=== PATIENT | female | born 1935 | race Caucasian/White ===

== ENCOUNTER 2016-08-28 13:28 | Observation (INO) | payer MEDICARE, OTHER ==
[~2016-08-28] VITALS: Ht 160 cm; Wt 68.0 kg
[~2016-08-28 13:28] MED LIST: PLAVIX 75 MG TA75 MG PO
[2016-08-28 14:43] LABS: HEMOGLOBIN 13.2 gm/dl (12.3-15.3); RED BLOOD COUNT 4.63 M/UL (4.00-5.10); WHITE BLOOD COUNT 9.1 K/UL (4.5-11.0)
[2016-08-28] MEDS ORDERED: LEVOTHYROXINE112 MCG PO (21:12)
[2016-08-28] MEDS ORDERED: LASIX20 MG PO (21:12)
[2016-08-28] MEDS ORDERED: TRADJENTA5 MG PO (21:12)
[2016-08-28] MEDS ORDERED: ASPIRIN CHEWABL81 MG PO (21:14)
[2016-08-28] MEDS ORDERED: SENNALAX-S TAB1 EACH PO (21:14)
[2016-08-28] MEDS ORDERED: PROTONIX 40 MG40 M1 PO (21:14)
[2016-08-28] MEDS ORDERED: LIPITOR20 MG PO (21:15)
[2016-08-28] MEDS ORDERED: DIABETA 5 MG TAB5 MG PO (21:15)
[2016-08-28] MEDS ORDERED: OMNICEF 300 MG300 MG PO (21:16)
[2016-08-28] MEDS ORDERED: VITAMIN B-1000 MCG/M INJ (21:16)
[2016-08-28] MEDS ORDERED: COREG 3.125M3.125 MG PO (21:17)
[2016-08-28] MEDS ORDERED: ALDACTONE25 MG PO (21:18)
[2016-08-28] MEDS ORDERED: MAPAP500 MG PO (21:18)
[2016-08-28] MEDS ORDERED: PLAVIX 75 MG TA75 MG PO (21:18)
[2016-08-28] MEDS ORDERED: CATAPRES0.2 MG PO (21:19)
[2016-08-28] MEDS ORDERED: HYDRALAZINE HCL25 MG PO (21:19)
[2016-08-29 06:33] LABS: HEMOGLOBIN 11.4 gm/dl (12.3-15.3); RED BLOOD COUNT 4.06 M/UL (4.00-5.10); WHITE BLOOD COUNT 7.9 K/UL (4.5-11.0)
[2016-08-29] MEDS ORDERED: CATAPRES 0.1MG0.1 MG PO (10:59)
== END 2016-08-29 14:06 | disposition home or self-care (01) ==
LOC: ER1 13:28 → ZEROF 16:20 → MED SURG 4 20:07
PROVIDERS: Emergency Medicine; ADMIT Emergency Medicine
DX: R55 Syncope and collapse (principal); R11.2 Nausea with vomiting, unspecified; E11.9 Type 2 diabetes mellitus without complications; E03.9 Hypothyroidism, unspecified; I25.10 Atherosclerotic heart disease of native coronary artery without angina pectoris; I10 Essential (primary) hypertension; I73.9 Peripheral vascular disease, unspecified; E78.5 Hyperlipidemia, unspecified; D64.9 Anemia, unspecified; E21.3 Hyperparathyroidism, unspecified; Z95.1 Presence of aortocoronary bypass graft; Z79.02 Long term (current) use of antithrombotics/antiplatelets; Z79.82 Long term (current) use of aspirin; Z79.899 Other long term (current) drug therapy; Z85.528 Personal history of other malignant neoplasm of kidney; Z90.5 Acquired absence of kidney; Z86.718 Personal history of other venous thrombosis and embolism; Z90.49 Acquired absence of other specified parts of digestive tract; Z90.710 Acquired absence of both cervix and uterus; Z98.51 Tubal ligation status; Z88.1 Allergy status to other antibiotic agents; Z88.2 Allergy status to sulfonamides; Z88.6 Allergy status to analgesic agent; Z87.891 Personal history of nicotine dependence
CPT/HCPCS: 36415; 70450; 71010; 80048; 80053; 81001; 82962; 83690; 83735; 84443; 84484; 85025; 93005; 93270; 96374; 99285; G0378; J2405

== ENCOUNTER 2016-08-30 13:37 | Emergency (ER) | payer MEDICARE, OTHER ==
[~2016-08-30 13:37] MED LIST changes: +ALDACTONE25 MG PO; +ASPIRIN CHEWABL81 MG PO; +CATAPRES 0.1MG0.1 MG PO; +CATAPRES0.2 MG PO; +COREG 3.125M3.125 MG PO; +DIABETA 5 MG TAB5 MG PO; +HYDRALAZINE HCL25 MG PO; +LASIX20 MG PO; +LEVOTHYROXINE112 MCG PO; +LIPITOR20 MG PO; +MAPAP500 MG PO; +OMNICEF 300 MG300 MG PO; +PROTONIX 40 MG40 M1 PO; +SENNALAX-S TAB1 EACH PO; +TRADJENTA5 MG PO; +VITAMIN B-1000 MCG/M INJ
[2016-08-30 15:39] LABS: HEMOGLOBIN 11.9 gm/dl (12.3-15.3); RED BLOOD COUNT 4.19 M/UL (4.00-5.10); WHITE BLOOD COUNT 9.2 K/UL (4.5-11.0)
== END 2016-08-30 17:13 | disposition home or self-care (01) ==
LOC: ER1 13:37
PROVIDERS: Emergency Medicine
DX: R05 Cough (principal); R09.89 Other specified symptoms and signs involving the circulatory and respiratory systems; J44.9 Chronic obstructive pulmonary disease, unspecified; Z86.79 Personal history of other diseases of the circulatory system; Z79.82 Long term (current) use of aspirin; Z79.84 Long term (current) use of oral hypoglycemic drugs; Z79.899 Other long term (current) drug therapy; Z88.0 Allergy status to penicillin; Z88.2 Allergy status to sulfonamides; Z88.5 Allergy status to narcotic agent; Z88.8 Allergy status to other drugs, medicaments and biological substances
CPT/HCPCS: 36415; 71020; 80053; 82550; 82553; 83605; 83880; 84484; 85025; 85610; 85730; 87040; 93005; 99283

== ENCOUNTER 2016-09-13 19:22 | Emergency (ER) | payer MEDICARE, OTHER ==
[2016-09-13 23:05] LABS: HEMOGLOBIN 11.6 gm/dl (12.3-15.3); RED BLOOD COUNT 4.14 M/UL (4.00-5.10); WHITE BLOOD COUNT 7.3 K/UL (4.5-11.0)
== END 2016-09-14 01:35 | disposition home or self-care (01) ==
LOC: ER1 19:22
PROVIDERS: Physician Assistant
DX: J18.9 Pneumonia, unspecified organism (principal); I12.9 Hypertensive chronic kidney disease with stage 1 through stage 4 chronic kidney disease, or unspecified chronic kidney disease; N18.3 Chronic kidney disease, stage 3 (moderate); E11.9 Type 2 diabetes mellitus without complications; I25.10 Atherosclerotic heart disease of native coronary artery without angina pectoris; Z90.710 Acquired absence of both cervix and uterus; Z95.1 Presence of aortocoronary bypass graft; Z88.1 Allergy status to other antibiotic agents; Z88.5 Allergy status to narcotic agent; Z88.2 Allergy status to sulfonamides; Z87.891 Personal history of nicotine dependence
CPT/HCPCS: 36415; 71020; 71250; 80053; 82550; 82553; 83874; 83880; 84484; 85025; 87070; 87077; 87205; 93005; 99284

== ENCOUNTER 2016-11-08 15:26 | Emergency (ER) | payer MEDICARE, OTHER ==
[2016-11-08 17:02] LABS: HEMOGLOBIN 12.3 gm/dl (12.3-15.3); RED BLOOD COUNT 4.36 M/UL (4.00-5.10); WHITE BLOOD COUNT 5.8 K/UL (4.5-11.0)
== END 2016-11-08 17:50 | disposition home or self-care (01) ==
LOC: ER1 15:26
PROVIDERS: Emergency Medicine
DX: H81.13 Benign paroxysmal vertigo, bilateral (principal); H83.03 Labyrinthitis, bilateral; I13.10 Hypertensive heart and chronic kidney disease without heart failure, with stage 1 through stage 4 chronic kidney disease, or unspecified chronic kidney disease; E11.22 Type 2 diabetes mellitus with diabetic chronic kidney disease; N18.9 Chronic kidney disease, unspecified
CPT/HCPCS: 36415; 80048; 82550; 82553; 84484; 85025; 85610; 85730; 96374; 96375; 99284; J1200; J2405